=== PATIENT | female | born 1990 | race Caucasian/White ===

== ENCOUNTER 2017-08-07 13:05 | Observation (INO) | payer OTHER, MEDICAID, SELFPAY ==
[2017-08-07] MEDS: LACTATED RINGERS 1,000 ML 1000 ML IV (14:25)
[2017-08-07 14:36] LABS: Add Manual Diff / Slide Review NO; Basophils Percent Auto 0.6 % (0-2); Eosinophils Percent Auto 0.3 % (2-4); Hematocrit 37.8 % (36-46); Lymphocytes Percent Auto 13.5 % (25-40); Mean Corpuscular HGB Conc 34.6 % (30-36); Mean Corpuscular Hemoglobin 30.2 PG (26-34); Mean Corpuscular Volume 87.5 fL (80-100); Monocytes Percent Auto 5.6 % (3-14); Neutrophils Absolute Auto 8500 /uL (3000-5900); Platelet Count 250 X10^3/uL (150-400); Red Blood Cell Count 4.31 X10^6/uL (4.0-5.2); Red Cell Distribution Width 13.8 % (11.6-14.8); White Blood Cell Count 10.6 X10^3/uL (4.5-11.0)
[2017-08-07] MEDS: cephALEXin 250 MG CAPSULE 500 MG PO (16:30)
[2017-08-07 19:40] LABS: Appearance Urine UA CLEAR; Bilirubin Urine UA NEGATIVE (NEGATIVE); Color Urine UA YELLOW; Glucose Urine UA NEGATIVE (NEGATIVE); Ketones Urine UA NEGATIVE (NEGATIVE); Leukocyte Esterase Urine UA 1+ (NEGATIVE); Nitrite Urine UA NEGATIVE (NEGATIVE); Occult Blood Urine UA NEGATIVE (NEGATIVE); Protein Urine UA NEGATIVE (NEGATIVE); Urobilinogen Urine UA 0.2 E.U./dL (0.2); pH Urine UA 6.5 (4.5-8.0)
[2017-08-07 19:51] LABS: Culture Indicated Urine Cult Not Indicated; RBC Urine 0-1/HPF (0-5/HPF); WBC Urine 0-1/HPF (0-5/HPF)
== END 2017-08-07 16:30 | disposition home or self-care (01) ==
PROVIDERS: Specialist; Admitting Provider Family Medicine; PCP Family Medicine; Visit Provider Family Medicine
DX: O60.02 Preterm labor without delivery, second trimester (principal); Z3A.20 20 weeks gestation of pregnancy
CPT/HCPCS: 59025; 59050; 81001; 85025; 96360; G0378; G0379

== ENCOUNTER 2017-10-03 18:02 | Observation (INO) | payer OTHER, MEDICAID, SELFPAY ==
[2017-10-03 18:50] LABS: Appearance Urine UA CLEAR; Bilirubin Urine UA NEGATIVE (NEGATIVE); Color Urine UA YELLOW; Glucose Urine UA NEGATIVE (Normal); Ketones Urine UA NEGATIVE (NEGATIVE); Leukocyte Esterase Urine UA TRACE (NEGATIVE); Nitrite Urine UA Negative (Negative); Occult Blood Urine UA NEGATIVE (Negative); Protein Urine UA NEGATIVE (Negative); Urobilinogen Urine UA 0.2 E.U./dL (0.2)
[2017-10-03] MEDS: NIFEdipine 10 MG CAPSULE PO ×4 (19:11→20:24)
[2017-10-03 19:20] LABS: Bacteria Urine Few (2-10); RBC Urine 0-1/HPF (0-5/HPF); Squamous Epithelial Cell Urine 1-5 /HPF; WBC Urine 5-10/HPF (0-5/HPF)
[2017-10-03 19:21] LABS: Culture Indicated Urine Specimen Cultured
[2017-10-03] MEDS: LACTATED RINGERS 1,000 ML 1000 ML IV (19:21)
== END 2017-10-03 20:45 | disposition home or self-care (01) ==
PROVIDERS: Admitting Provider Family Medicine; PCP Family Medicine; Visit Provider Family Medicine
DX: O60.03 Preterm labor without delivery, third trimester (principal); Z3A.28 28 weeks gestation of pregnancy
CPT/HCPCS: 59025; 59050; 81001; 87077; 87086; 87186; 96360; G0378; G0379

== ENCOUNTER 2017-10-06 13:16 | Observation (INO) | payer OTHER, MEDICAID, SELFPAY | END 2017-10-06 14:11 | disposition home or self-care (01) | PROVIDERS: Admitting Provider Family Medicine; PCP Family Medicine; Visit Provider Family Medicine | DX: Z03.71 Encounter for suspected problem with amniotic cavity and membrane ruled out (principal); Z3A.29 29 weeks gestation of pregnancy | CPT/HCPCS: 59025; 84112; G0378; G0379 ==

== ENCOUNTER → 2017-10-17 15:18 | Outpatient (CLI) | payer OTHER, MEDICAID, SELFPAY ==
--- NOTE | 2017-10-17 15:21 | DI.US.S_ITS ---
PROCEDURE: US OB LIMITED INDICATIONS: SIZE OUTSIDE/PRIOR DATING DATA: Last menstrual period (LMP): 03/09/2017. LMP-based estimated date of delivery (DILLAN): 12/14/2017. First dating scan (date and location): 05/12/2017. Estimated date of delivery (DILLAN) from first dating scan: 12/20/2017. TECHNIQUE: Real-time scanning was performed of the fetus, with image documentation. Endovaginal scanning: Not performed COMPARISON: [facility], OB >= 14 WEEKS FETUS, 08/06/2017, 8:57. FINDINGS: A single living intrauterine gestation is present. Presentation: Vertex Placenta: Placental position is anterior, without previa. Amniotic fluid index: 16.2 cm, normal range is 5-24 cm. heart rate: 143 beats per minute. Maternal cervical canal: 4.0 cm long. Normal lower limit is 2.5 cm. Estimated gestational age from initial scan: 30 weeks and 6 days. Estimated gestational age from today's scan: 31 weeks and 6 days Biparietal diameter: 7.9 CM (31 weeks and 5 days) Head circumference: 29.3 CM (32 weeks and 2 days) Abdominal circumference: 28.6 CM (32 weeks and 5 days) Femur length: 5.9 CM (30 weeks and 6 days) Estimated weight: 1879 gm (76%) IMPRESSION: Single intrauterine gestation with estimated gestational age of 30 weeks and 6 days. Dictated by: Rajiv Marie M.D. on 10/17/2017 at 16:28 Approved by: Rajiv Marie M.D. on 10/17/2017 at 16:32
== END ==
PROVIDERS: PCP Family Medicine; Visit Provider Family Medicine
DX: Z36.89 Encounter for other specified antenatal screening (principal); Z3A.30 30 weeks gestation of pregnancy
CPT/HCPCS: 76815

== ENCOUNTER → 2017-11-25 18:12 | Outpatient (REF) | payer OTHER, MEDICAID, SELFPAY | LOC: LAB 18:12 | PROVIDERS: PCP Family Medicine; Visit Provider Family Medicine | DX: Z34.90 Encounter for supervision of normal pregnancy, unspecified, unspecified trimester (principal) | CPT/HCPCS: 87081 ==

== ENCOUNTER → 2017-12-09 13:06 | Outpatient (CLI) | payer OTHER, MEDICAID, SELFPAY ==
--- NOTE | 2017-12-09 | DI.US.S_ITS ---
PROCEDURE: US OB LIMITED INDICATIONS: SIZE LESS THAN DATES OUTSIDE/PRIOR DATING DATA: Last menstrual period (LMP): 03/09/2017. LMP-based estimated date of delivery (DILLAN): 12/14/2017. First dating scan (date and location): 05/12/2017. Estimated date of delivery (DILLAN) from first dating scan: 12/20/2017 TECHNIQUE: Real-time scanning was performed of the fetus, with image documentation and biometric measurements. Endovaginal scanning: No COMPARISON: [facility], US OB LIMITED, 10/17/2017, 15:45. FINDINGS: General: A single living intrauterine gestation is present. Presentation: Vertex. Placenta: Placental position is anterior, without previa. Amniotic fluid index: 9.6 cm, normal range is 5-24 cm. heart rate: 153 beats per minute. Maternal cervical canal: Not well-seen. biometrics: Biparietal diameter: 38 weeks 1 day Head circumference: 38 weeks 3 days Abdominal circumference: 39 weeks Femur length: 38 weeks Estimated gestational age from initial scan: 38 weeks 3 days Composite gestational age from present scan: 38 weeks 3 days Estimated weight and percentile: 3534 g; 69 percentile Measurement variability for biometric dating: +/- 7 days from 14 weeks to 15 weeks 6 days gestation, +/- 10 days from 16 weeks to 21 weeks 6 days gestation, +/- 2 weeks from 22 weeks to 27 weeks 6 days gestation, +/- 3 weeks for 28 weeks gestation or later. weight reference: 4500 g or EFW >90/95% is considered macrosomia or large for gestational age. EFW <10% is small for gestational age. EFW 5% or less is considered intra-uterine growth restriction. Other: Not applicable. IMPRESSION: Single living IUP redemonstrated and interval growth is normal. Dictated by: Jeet Mason [facility] Interpreted: Mohan Loco MD on 12/09/2017 at 16:32 Approved by: Mohan Loco M.D. on 12/09/2017 at 17:33
== END ==
PROVIDERS: PCP Family Medicine; Visit Provider Family Medicine
DX: O36.5930 Maternal care for other known or suspected poor fetal growth, third trimester, not applicable or unspecified (principal); Z3A.38 38 weeks gestation of pregnancy
CPT/HCPCS: 76815

== ENCOUNTER 2017-12-13 20:50 | Observation (INO) | payer OTHER, MEDICAID, SELFPAY | END 2017-12-13 23:07 | disposition home or self-care (01) | PROVIDERS: Admitting Provider Family Medicine; PCP Family Medicine; Visit Provider Family Medicine | DX: Z34.83 Encounter for supervision of other normal pregnancy, third trimester (principal); Z3A.39 39 weeks gestation of pregnancy | CPT/HCPCS: 59025; 59050; G0378; G0379 ==

== ENCOUNTER 2017-12-17 18:22 | Inpatient (IN) | payer OTHER, MEDICAID, SELFPAY ==
[2017-12-17] MEDS: LACTATED RINGERS 1,000 ML 100 ML IV (19:11)
[2017-12-17 19:22] LABS: Add Manual Diff / Slide Review NO; Basophils Percent Auto 0.6 % (0-2); Eosinophils Percent Auto 0.5 % (2-4); Hematocrit 36.9 % (36-46); Hemoglobin 12.1 g/dL (12.0-16.0); Lymphocytes Percent Auto 21.5 % (25-40); Mean Corpuscular HGB Conc 32.8 % (30-36); Mean Corpuscular Hemoglobin 27.3 PG (26-34); Mean Corpuscular Volume 83.2 fL (80-100); Monocytes Percent Auto 8.5 % (3-14); Neutrophils Absolute Auto 8500 /uL (3000-5900); Neutrophils Percent Auto 68.9 % (50-75); Platelet Count 249 X10^3/uL (150-400); Red Blood Cell Count 4.43 X10^6/uL (4.0-5.2); Red Cell Distribution Width 15.5 % (11.6-14.8); White Blood Cell Count 12.3 X10^3/uL (4.5-11.0)
[2017-12-17 19:45] VITALS: BP 132/83
[2017-12-18] MEDS: ACETAMINOPHEN 325 MG TABLET 650 MG PO (06:29)
--- NOTE | 2017-12-18 08:11 | PM.OBPRVD ---
Delivery date: 12/18/17 Intrapartal events: None Delivery monitor: external FHT and external uterine Route of delivery: Laceration description: Vaginal - 1st Degree Delivery repair: chromic Estimated blood loss (mL): 200 Anesthesia type: Epidural Narrative: Identifying data: This pleasant 27-year-old at 3947 weeks estimated gestational age has had irregular and regular uterine contractions for several weeks. She has not made cervical change. She was driving to the hospital for Cytotec cervical ripening and induction when she had spontaneous rupture membranes at 6:10 p.m. on the day prior to delivery of clear fluid. It is she was 3 cm dilated on presentation was felt to be an active labor at 7:00 p.m.. She had unremarkable other than premature onset of uterine contractions. She had some early 2nd trimester bleeding as well for etiology are known. No evidence of placenta previa or abruption. She had abnormal 1 hr glucose tolerance test but normal 3 hr glucose tolerance test. Stage I: Lasted 11 hr and 30 min Patient had spontaneous rupture membranes at 6:10 p.m. on 12/17/2017 13 hr and 14 min prior to delivery. Copious amounts of clear fluid. A continue to be clear throughout this time. Patient was given epidural at 7:00 p.m.. It was effective with some left-sided pain. Patient labor through the night without augmentation at 5:00 a.m. was found to be 7 cm dilated. She had external heart tones monitor which showed category 1 tracing with a baseline in the 130s with moderate variability and accelerations and no decelerations. She had external tocometer showing contractions every 5-8 minutes. Stage II lasted 54 min. The patient was noted to be complete at 6:30 a.m.. She was having some nausea and vomiting. She began pushing at 7: 2:00 p.m. and had good personal and effectively pushed and baby was in direct OA presentation. The head was delivered without difficulty and good control and then felt for cord which was not present and anterior and posterior shoulders were delivered without difficulty. Baby was vigorous at delivery was placed on mom's chest. External heart monitor throughout this stage was reassuring with category 1 tracing. His Stage III lasted 3 min Resulted in the normal spontaneous vaginal delivery of an intact moderately calcified placenta with a central cord insertion. Three-vessel cord. Ten milliunits of Pitocin was given through the IV. Total estimated blood loss was 200 cc. There was a left 1st group arm nail laceration which was repaired with 3 0 chromic. There remainder of the perineum, periurethral, vaginal, cervical area showed no lacerations. Operation were 9 at 1 min and 9 at 5 min. weight is pending. At the time this dictation both mom and baby are in stable condition GBS negative mom, status post Tdap
[2017-12-18] MEDS: IBUPROFEN 600 MG TABLET PO ×3 (08:30→21:16)
[2017-12-18] MEDS: LANOLIN OINT 7 GM 1 APPLIC TOP (10:32)
[2017-12-18] MEDS: DERMOPLAST SPRAY 20% 60 ML 1 SPRAY TOP (10:32)
[2017-12-19 01:04] VITALS: BP 114/75; PULSE 76; RESP 18; TEMP 36.4
[2017-12-19 06:22] LABS: Hemoglobin 10.9 g/dL (12.0-16.0)
--- NOTE | 2017-12-19 08:03 | PM.OBHP.1 ---
OB HPI History of Present Condition Chief complaint: eval of labor Narrative: Madisyn Almanzar is a 27 year old female presents to Labor and delivery for scheduled induction due to prodromal labor but was found to be in active labor with spontaneous rupture membranes on her way to hospital. Clear fluid. Unremarkable . care was begun early on. Patient had greater than 14 visits. Total waking was 40 lb. Blood pressure was 108-122 over 66-80. Patient received her Tdap patient when on Zantac for reflux. Patient had 2nd trimester vaginal bleeding but no placental abnormality was noted. 1 hr glucose tolerance test was 147 but 3 hr glucose tolerance test and hemoglobin A1c was entirely normal. Patient O-positive, rubella immune HIV, hepatitis-C, hepatitis-B, syphilis, GC, chlamydia, Pap smear all within normal limits. Group B beta strep was negative. Hemoglobin 12.3 initially 3 hr glucose tolerance test was 166, 128, 36 sequential screen and AFP were negative Past OB history: One. 12/05/2007 at 37 weeks gestation after 6 hr labor normal spontaneous vaginal delivery of a 6 lb 7 oz female name Ned feliciano Two. 11/03/2012 at 40 weeks gestation after 3 hr labor normal spontaneous vaginal delivery of a viable male infant weighing 7 lb 7 oz at [facility] with epidural and no complications 3. 04/26/2015 at 39 weeks gestation normal spontaneous vaginal delivery of a viable female weighing 7 lb 3 oz named Y[facility] at [facility] with epidural. No complications PSH: Unremarkable Past medical history: Unremarkable Evaluation Evaluation Laboratory results: Laboratory Tests 12/17/17 12/17/17 12/19/17 19:19 19:19 06:13 WBC 12.3 H RBC 4.43 Hgb 12.1 10.9 L Hct 36.9 33.0 L MCV 83.2 MCH 27.3 MCHC 32.8 RDW 15.5 H Plt Count 249 Neut % (Auto) 68.9 Lymph % (Auto) 21.5 L [place] % (Auto) 8.5 Eos % (Auto) 0.5 L Baso % (Auto) 0.6 Neut # (Auto) 8500 H Blood Type O Positive Antibody Screen Negative PFSH Social History Smoking Status: Never smoker Meds Home Medications Medication Instructions Recorded Confirmed Type No Known Home Medications 12/17/17 12/17/17 History Allergies Allergy/AdvReac Type Severity Reaction Status Date / Time adhesive [ADHESIVE] Allergy Mild TAPE Verified 10/03/17 20:53 Review of Systems Review of Systems No headaches, no swelling no abnormal discharge Baby has been active No abdominal pain other than uterine contractions All systems reviewed & are unremarkable except as noted in HPI and below Exam Narrative Exam Narrative: HEENT unremarkable Afebrile vital signs are stable Neck is supple without masses or thyromegaly Chest: Clear to auscultation without wheezes rhonchi or crackles Cor: Regular rate and rhythm without murmur Abdomen: Positive bowel sounds, soft, nontender, nondistended, gravid, estimated weight 7 lb 8 oz Extremities no significant edema. DTRs are 2+ bilaterally. Neurologic exam is nonfocal Skin no rashes Cervical exam she has complete +1 station Uterine contractions every 4-6 minutes without Pitocin Spontaneous rupture membranes, clear 13 hr prior heart tracing with external heart monitor shows category 1 tracing with baseline 130s and accelerations with variable decelerations with pushing Objective Labs Result Diagrams: 12/19/17 06:13 Labs: Laboratory Results - last 24 hr 12/19/17 06:13 Hgb 10.9 L Hct 33.0 L Assessment and Plan Plan: Plan: 27-year-old at 39 and 4 7 weeks estimated gestational age in active labor Comfortable with epidural GBS negative Arch positive Complete. We will begin pushing Category 1 tracing Pitocin
--- NOTE | 2017-12-19 08:26 | PM.OBDS.1 ---
Discharge Providers Date of admission: 12/17/17 18:22 Primary care physician: Tosha Hummel MD Consults: 12/18/17 09:00 Consult to Cras Routine Comment: 12/18/17 09:17 Consult to Cras Routine Comment: Discharge provider: Tosha Hummel MD Summary Date Patient Seen: 12/19/17 Time Patient Seen: 08:29 Peripartum Data Infant Delivery Method: Natural Vaginal Laceration description: Perineal - 1st Degree complications: none Status at Discharge Cognitive/behavioral status at discharge: normal Functional status at discharge: independent ambulation Overall status at discharge: patient is progressing back to baseline Time Spent with Patient Total time spent providing and/or coordinating discharge services: 20 minutes Less than 30 minutes Specific discharge activities: Discharged to home and follow up with Dr. Hummel in 2 weeks Routine pelvic rest and no heavy lifting Routine infection precautions discussed Objective Labs Result Diagrams: 12/19/17 06:13 Labs: Laboratory Results - last 24 hr 12/19/17 06:13 Hgb 10.9 L Hct 33.0 L Discharge Plan Discharge Med Rec/Prescriptions Prescriptions: No Action No Known Home Medications RF: 0 Discharge Orders: Discharge (Order); Ordered 12/19/17 Ordered By: Tosha Hummel Provider Discharge Instructions Activity: pelvic rest no heavy lifting Discharge Data Primary Care Provider: Tosha Hummel Attending Provider: Tosha Hummel Admit Date/Time: 12/17/17 18:22
--- NOTE | 2017-12-19 08:30 | P.DS_ITS ---
Discharge Providers Date of admission: 12/17/17 18:22 Primary care physician: Tosha Hummel MD Consults: 12/18/17 09:00 Consult to Heel Seat Fitter Machine Routine Comment: 12/18/17 09:17 Consult to Heel Seat Fitter Machine Routine Comment: Discharge provider: Tosha Hummel MD Summary Date Patient Seen: 12/19/17 Time Patient Seen: 08:29 Peripartum Data Infant Delivery Method: Natural Vaginal Laceration description: Perineal - 1st Degree complications: none Status at Discharge Cognitive/behavioral status at discharge: normal Functional status at discharge: independent ambulation Overall status at discharge: patient is progressing back to baseline Time Spent with Patient Total time spent providing and/or coordinating discharge services: 20 minutes Less than 30 minutes Specific discharge activities: Discharged to home and follow up with Dr. Hummel in 2 weeks Routine pelvic rest and no heavy lifting Routine infection precautions discussed Objective Labs Result Diagrams: 12/19/17 06:13 Labs: Laboratory Results - last 24 hr 12/19/17 06:13 Hgb 10.9 L Hct 33.0 L Discharge Plan Discharge Med Rec/Prescriptions Prescriptions: No Action No Known Home Medications RF: 0 Discharge Orders: Discharge (Order); Ordered 12/19/17 Ordered By: Tosha Hummel Provider Discharge Instructions Activity: pelvic rest no heavy lifting Discharge Data Primary Care Provider: Tosha Hummel Attending Provider: Tohsa Hummel Admit Date/Time: 12/17/17 18:22
[2017-12-19] MEDS: DOCUSATE 250 MG CAPSULE PO (08:54)
[2017-12-19] MEDS: IBUPROFEN 600 MG TABLET PO (08:55)
== END 2017-12-19 14:10 | disposition home or self-care (01) | DRG 560 ==
PROVIDERS: Admitting Provider Family Medicine; PCP Family Medicine; Visit Provider Family Medicine
DX: O70.0 First degree perineal laceration during delivery (principal); Z3A.39 39 weeks gestation of pregnancy; Z37.0 Single live birth
CPT/HCPCS: 01967; 36415; 59050; 85014; 85018; 85025; 86850; 86900; 86901; G0379; J3010

== ENCOUNTER → 2018-01-02 11:51 | Outpatient (CLI) | payer OTHER, MEDICAID, SELFPAY | PROVIDERS: PCP Family Medicine; Visit Provider Family Medicine | DX: M54.2 Cervicalgia (principal); Z53.20 Procedure and treatment not carried out because of patient's decision for unspecified reasons ==

== ENCOUNTER → 2018-01-05 11:13 | Outpatient (CLI) | payer OTHER, MEDICAID, SELFPAY ==
--- NOTE | 2018-01-05 11:15 | DI.RAD.S_ITS ---
PROCEDURE: XR THORACIC SPINE 3V INDICATIONS: PAIN TECHNIQUE: 2 views of the thoracic spine were acquired. COMPARISON: None. FINDINGS: Bones: No fractures or dislocations. No suspicious bony lesions. 12 pairs of ribs are noted, and appear intact where visualized. Soft tissues: No paravertebral stripe thickening. IMPRESSION: Source of pain is not seen. Dictated by: Mohan Loco M.D. on 01/05/2018 at 12:13 Approved by: Mohan Loco M.D. on 01/05/2018 at 12:13
--- NOTE | 2018-01-05 11:15 | DI.RAD.S_ITS ---
PROCEDURE: XR CERVICAL SPINE 2V OR 3V INDICATIONS: PAIN TECHNIQUE: 3 view(s) of the cervical spine were acquired. COMPARISON: None. FINDINGS: Bones: No fractures or dislocations to the T1 level. The lateral masses of C1 appear intact on the odontoid view. No suspicious bony lesions. Soft tissues: No prevertebral soft tissue swelling. IMPRESSION: No trauma found. Source of pain is not seen. Dictated by: Mohan Loco M.D. on 01/05/2018 at 12:12 Approved by: Mohan Loco M.D. on 01/05/2018 at 12:13
== END ==
PROVIDERS: PCP Family Medicine; Visit Provider Family Medicine
DX: M54.2 Cervicalgia (principal); M54.6 Pain in thoracic spine
CPT/HCPCS: 72040; 72072

== ENCOUNTER → 2019-11-24 10:36 | Outpatient (CLI) | payer BC, SELFPAY ==
--- NOTE | 2019-11-24 | DI.US.S_ITS ---
PROCEDURE: US RENAL COMPLETE INDICATIONS: Frequency of micturition TECHNIQUE: Real-time scanning was performed of the kidneys and bladder, with image documentation. COMPARISON: [facility], , RENAL COMPLETE, 02/22/2011, 12:32. FINDINGS: Kidneys: Kidneys are normal in size. Right kidney measures 10.2 cm long; left kidney measures 11.3 cm long. Right renal cortical thickness is 1.4 cm; left renal cortical thickness is 1.9 cm. Renal cortical echotexture is normal. No hydronephrosis or nephrolithiasis. No suspicious solid mass lesions. Bladder: Pre-void bladder volume is 107 mL. Post-void residual is 4.0 mL. Pre-void images demonstrate no intraluminal masses or stones. On pre-void images, bilateral ureteral jets are noted with color Doppler interrogation. (Of note, ureteral jets may not be detectable in up to 25% of cases due to insufficient differences in specific gravity between ureteral and bladder urine). Miscellaneous: No free pelvic fluid. IMPRESSION: No source of urinary frequency is found. Normal bladder function. Dictated by: Mohan Loco M.D. on 11/24/2019 at 11:17 Approved by: Mohan Loco M.D. on 11/24/2019 at 11:19
== END ==
PROVIDERS: PCP Family Medicine; Referring Provider Family Medicine; Visit Provider Family Medicine
DX: R35.0 Frequency of micturition (principal)
CPT/HCPCS: 76770

== ENCOUNTER → 2019-12-28 15:46 | Outpatient (CLI) | payer BC, SELFPAY ==
--- NOTE | 2019-12-28 15:51 | DI.US.S_ITS ---
PROCEDURE: US OB <= 14 WEEKS FETUS INDICATIONS: Followup OUTSIDE/PRIOR DATING DATA: Last menstrual period (LMP): 11/07/2019 . LMP-based estimated date of delivery (DILLAN): 08/13/2020 . First dating scan (date and location): 12/28/2019 . Estimated date of delivery (DILLAN) from first dating scan: 08/13/2020 . TECHNIQUE: Real-time scanning was performed of the fetus and maternal pelvic organs, with image documentation. Endovaginal scanning was also performed to better visualize the fetus and maternal ovaries. COMPARISON: None. FINDINGS: Embryo: Single live intrauterine with crown-rump length measuring 1.16 cm corresponding to 7 weeks 2 days. heart tones are present at 155 beats per minute. Measurement variability in dating: +/- 4 weeks by LMP, +/- 7 days by mean sac diameter (use before 6 weeks gestation if crown-rump length not able to be measured), +/- 5 days by crown-rump length (up to 8 weeks 6 days gestation), +/- 7 days by crown-rump length (up to 13 weeks 6 days gestation). Maternal organs: Ovaries demonstrate a right corpus luteal cyst. . Limited images through the kidneys demonstrate no hydronephrosis. IMPRESSION: 1. Single live intrauterine with ultrasound gestational age of 7 weeks 2 days corresponding to ultrasound DILLAN of 08/13/2020. 2. Recommend followup imaging at 20-22 weeks for dates and anatomy. Dictated by: Gilda Tavarez M.D. on 12/29/2019 at 10:42 Approved by: Gilda Tavarez M.D. on 12/29/2019 at 10:45
== END ==
PROVIDERS: PCP Family Medicine; Referring Provider Family Medicine; Visit Provider Family Medicine
DX: Z36.2 Encounter for other antenatal screening follow-up (principal); Z3A.01 Less than 8 weeks gestation of pregnancy
CPT/HCPCS: 76801

== ENCOUNTER 2020-03-14 15:48 | Observation (INO) | payer BC, OTHER, MEDICAID, SELFPAY ==
[2020-03-14 15:57] VITALS: BP 125/91; PULSE 105; RESP 16; TEMP 36.6; O2SAT 99
--- NOTE | 2020-03-14 16:44 | ED.PREGNANCY ---
HPI - General Chief complaint: OB/Uterine Contractions Stated complaint: 18 WKS CONTRACTIONS Time Seen by Provider: 03/14/20 16:28 Source: patient Mode of arrival: Ambulatory History of Present Illness HPI Narrative: 29-year-old at 18 weeks and 3 days presents with contractions since 04/29 this afternoon. They are now approximately every 2 minutes and becoming increasingly uncomfortable. She reports no loss of fluid, no bleeding does note that the baby is moving. She has had complicated pregnancies previously and her most recent , #4, she required nifedipine from 20 weeks until her 39 week delivery. Patient : Yes Related Data Home Medications Medication Instructions Recorded Confirmed No Known Home Medications 12/17/17 12/17/17 Allergies Allergy/AdvReac Type Severity Reaction Status Date / Time adhesive [ADHESIVE] Allergy Mild TAPE Verified 03/14/20 16:00 Review of Systems Review of Systems Narrative: Pertinent positive and negative findings as per HPI Remainder of review of systems is otherwise unremarkable for Constitutional: Fevers, chills, weakness ENT: No sore throat, neck pain, ear pain CV: Chest pain, palpitations, dyspnea on exertion Respiratory: Cough, wheeze, dyspnea GI: Nausea, vomiting, PMFSH - Past Medical History Medical history: Reports no medical history Patient : Yes Exam Narrative Exam Narrative: General: Alert appropriate in no acute distress Respiratory: Able to speak in full sentences, no obvious respiratory distress Skin: No obvious rashes, warm and dry Abdomen: Gravid, obvious contractions Q 2 minutes Cervical exam: Almost completely effaced well-developed lower uterine segment with very posterior cervical os, no bleeding, no loss of fluid Bedside ultrasound: Vertex, viable intrauterine with a heart rate of 130. Normal appearing amniotic fluid volumes. Anterior low lying placenta Initial Vital Signs Initial Vital Signs: Vital Signs Temperature 97.8 F 03/14/20 15:57 Pulse Rate 105 H 03/14/20 15:57 Respiratory Rate 16 03/14/20 15:57 Blood Pressure 125/91 H 03/14/20 15:57 Pulse Oximetry 99 03/14/20 15:57 Course Orders Ordered: Discontinued Medications Nifedipine (Nifedipine 10 Mg Capsule) 10 mg PO NOW ONE Stop: 03/14/20 16:47 Terbutaline Sulfate (Terbutaline 1 Mg/Ml Vial) 0.25 mg SUBCUT NOW ONE Stop: 03/14/20 16:47 Vital Signs Vital signs: Vital Signs - 8 hr 03/14/20 15:57 Temperature 97.8 F Pulse Rate 105 H Respiratory Rate 16 Blood Pressure 125/91 H Pulse Oximetry 99 MDM - OB/Uterine Contractions MDM Narrative Medical decision making narrative: 29-year-old at 18 weeks, nonviable with active contractions and cervical effacement. Reviewed with Dr. Hummel, her primary care OB provider. Will give her 0.25 mg of subcu terbutaline and 10 mg of oral nifedipine to see if we can slow contractions and Dr. Hummel will talk with additional consultants to decide what options are for this 18 week 3 day nonviable . Meds are not immediately available in the emergency department. Call to labor and delivery. Patient will be transferred to room 6 labor and delivery, nifedipine and terbutaline will be administered there and Dr. Hummel will meet the patient there. Discharge Plan Departure Patient Disposition: Admitted as Observation Clinical Impression: Premature labor Qualifiers: labor trimester: second trimester labor delivery status: without delivery Qualified Code(s): O60.02 - labor without delivery, second trimester Admit Date/Time: 03/14/20 16:55 Admit Provider: Tosha Hummel
[2020-03-14] MEDS: NIFEdipine 10 MG CAPSULE PO ×4 (17:05→18:37)
[2020-03-14] MEDS: TERBUTALINE 1 MG/ML VIAL 0.25 MG SUBCUT (17:05)
--- NOTE | 2020-03-14 17:25 | DI.US.S_ITS ---
PROCEDURE: US OB >= 14 WEEKS FETUS INDICATIONS: suspected labor OUTSIDE/PRIOR DATING DATA: Last menstrual period (LMP): 11/07/2019 . LMP-based estimated date of delivery (DILLAN): 08/13/2020 . First dating scan (date and location): 12/28/2019 . Estimated date of delivery (DILLAN) from first dating scan: 08/13/2020 . TECHNIQUE: Real-time scanning was performed of the fetus, with image documentation and biometric measurements. Endovaginal scanning: Performed COMPARISON: None. FINDINGS: General: A single living intrauterine gestation is present. Presentation: Vertex. Placenta: Placental position is anterior , without previa. Amniotic fluid index: 12 cm, normal range is 5-24 cm. No change in JANUARY upon Valsalva heart rate: 153 beats per minute. Maternal cervical canal: 4.76 cm long. Normal lower limit is 2.5 cm. IMPRESSION: Single live intrauterine gestation. Normal JANUARY with no change in JANUARY upon Valsalva. Closed cervix with a normal length. Dictated by: Norman Muhammad M.D. on 03/14/2020 at 17:26 Approved by: Norman Muhammad M.D. on 03/14/2020 at 17:30
[2020-03-14] MEDS: LACTATED RINGERS 1,000 ML 1000 ML IV (17:40)
--- NOTE | 2020-03-14 17:43 | P.CONS_ITS ---
History of Present Illness Consult details Date Patient Seen: 03/14/20 Time Patient Seen: 18:00 Chief complaint: 18 WKS CONTRACTIONS Reason for consult: 18 weeks gestation with contractions Requesting provider: Tosha Hummel Narrative: This patient is a 29-year-old 004 at 18+3 dated by 7 week ultrasound concordant with LMP, presenting to Labor and delivery with Q 1-2 painful contractions since earlier this afternoon. She was directed to the emergency room and from there was sent to Labor and delivery after initial ultrasound was reassuring with heart rate in the 140s, normal fluid, no gross abnormalities. The patient received 10 mg of rapid acting nifedipine and 0.25 mg of IM terbutaline, with mild symptom relief. She reports significant symptom relief with her 2nd dose of nifedipine. The patient denies vaginal bleeding, loss of fluid, fevers, chills, dysuria, flank pain, shortness of breath, headaches, or any other associated symptoms. The patient has had a previously uncomplicated , with a normal quad screen. She has 4 prior term vaginal deliveries, though contractions with the last from 20 weeks until delivery at 39 weeks. She denies any history of abnormal Pap smears or cervical procedures, STDs or pelvic infections, or other curing finisher surgery. She den ies any contributory medical, surgical, social, or family history. Meds Home Medications and Allergies Home Medications Medication Instructions Recorded Confirmed Type No Known Home Medications 12/17/17 03/14/20 History Allergies Allergy/AdvReac Type Severity Reaction Status Date / Time adhesive [ADHESIVE] Allergy Mild TAPE Verified 03/14/20 16:00 Review of Systems Constitutional Constitutional: Reports system reviewed and no additional complaints, except as documented Cardiovascular Cardiovascular: Reports system reviewed and no additional complaints, except as documented Respiratory Respiratory: Reports system reviewed and no additional complaints, except as documented Gastrointestinal Gastrointestinal: Reports as per HPI Genitourinary Genitourinary: Reports as per HPI Neurologic Neurologic: Reports system reviewed and no additional complaints, except as documented Exam Vital Signs (past 8 hours): - 03/14/20 15:57 Temperature 97.8 F Pulse Rate 105 H Respiratory Rate 16 Blood Pressure 125/91 H Pulse Oximetry 99 Oxygen Delivery Method Room Air Narrative Exam Narrative: heart rate 140s, contractions initially Q 1-2 on toco. Significantly improved symptomatic with tocolytics as above, 1 L IV fluid bolus. Of note patient has not had urge to void since arriving on Labor and delivery, despite 1 L fluid bolus. Const General: cooperative, healthy appearing and comfortable (Resting in bed, accompanied by partner) GI Palpation: soft and No tender (Appropriately gravid, no tenderness on palpation) Skin General: no rashes or lesions noted Extrem General: normal to inspection Objective Labs Result Diagrams: 03/14/20 17:50 Assessment & Plan Assessment & Plan narrative: This patient presents with symptomatic contractions. The patient has no signs or symptoms of abruption or intrauterine infection, and though she continues to contract irregularly, her symptoms and contraction frequency are much improved after IV hydration and tocolytics. Transvaginal ultrasound shows a 4 cm cervix with no other abnormalities on limited survey, and full anatomic survey was deferred to outpatient. At this time, urinalysis is pending the patient's inability to void secondary to dehydration. CBC showed a mild elevated white count but no other abnormalities, and patient has no clinical signs of infection. This time, the patient does not appear to be imminently delivering, and she has a history of contractions starting at 20 weeks in her prior with delivery at term. We discussed that especially given her cervical length, transfer for higher level of care is not warranted given her persistent contractions and her gestational age. Pending results of the UA, discharge with tocolysis for symptom relief seems appropriate, as the patient lives in [facility]. Precautions for return were discussed at length, and the patient will follow-up with her primary provider. - UA pending -above discussed with Dr. Hummel, agree with plan for 30 of X on nifedipine b.i.d. with 10 mg immediate release for breakthrough contractions symptoms. -discussed with patient return for vaginal bleeding, loss of fluid, worsening symptoms despite nifedipine, fevers, chills, abdominal tenderness.
--- NOTE | 2020-03-14 17:44 | PC.NURSE ---
pt taken to L&D after dr chiu spoke with dr anand.
[2020-03-14 18:15] LABS: Add Manual Diff / Slide Review NO; Basophils Absolute Auto 0 /uL (0-100); Basophils Percent Auto 0.3 % (0-2); Eosinophils Absolute Auto 0 /uL (0-450); Eosinophils Percent Auto 0.2 % (2-4); Hematocrit 39.2 % (36-46); Lymphocytes Absolute Auto 3300 /uL (1100-4500); Lymphocytes Percent Auto 19.6 % (25-40); Mean Corpuscular HGB Conc 33.1 % (30-36); Mean Corpuscular Hemoglobin 29.5 PG (26-34); Mean Corpuscular Volume 89.1 fL (80-100); Monocytes Absolute Auto 800 /uL (0-900); Monocytes Percent Auto 4.8 % (3-14); Neutrophils Absolute Auto 12500 /uL (1500-7000); Neutrophils Percent Auto 75.1 % (50-75); Platelet Count 241 X10^3/uL (150-400); Red Cell Distribution Width 13.8 % (11.6-14.8); White Blood Cell Count 16.6 X10^3/uL (4.5-11.0)
--- NOTE | 2020-03-14 18:24 | P.TNLD_ITS ---
Visit Information Visit Information Date of evaluation: 03/14/20 Primary OB Provider: Tosah Hummel Reason for Evaluation: Yes rule out labor Comments/Additional reasons for admission: This 29-year-old at 18 and 3 7th weeks estimated gestational age based on a EDC of 08/13/2020 based on LMP and a 7 week ultrasound presents to ER with complaints of painful contractions. Apparently patient was lying down napping and she started feeling cramping and then had sudden onset of significant uterine contractions every 2 minutes apart. These were happening for about 30 minutes and she called our clinic we instr ucted her to go to the emergency room. In the emergency room they were able to evaluate and see that she was ted. Bedside ultrasound was done and there was concern for cervical effacement and heart tones in the 140s. Patient was transferred to Labor and delivery where an IV was placed and IV fluids were given. Patient was given 1 dose of subcutaneous terbutaline and was given nifedipine 10 mg and she felt that her contractions had decreased in intensity but were still every 2 minutes. Patient has a history of pre term uterine contractions but has had all 4 of her children at term via normal spontaneous vaginal deliveries. This has been complicated by social conditions and the father of this baby is not her or the father of her 4 children. The patient has been in her usual state health. She has not had any falls. She has not had any fever, chills, rashes. She has had no URI symptoms. She has had no UTI symptoms. She has had no change in discharge. No bleeding. No leaking. No swelling. No headaches. No chest pain or shortness of breath. Sh e is feeling the baby move. She had sexual intercourse 2 nights prior. She did have some cramping on last Friday but nothing that persisted. Past medical history: Recurrent UTI Herpes labialis Migraine GERD Current medications are vitamins and Zofran Allergies no known drug allergies Past surgical history Unremarkable Family history: Dad with hypertension hyperlipidemia and alcohol use Mom is healthy Sister has asthma Social history: Patient currently from her and living with her boyfriend, father of the baby at his mom's house Four children she is taking care of them during the day and they are staying with the dad at night She is living in [place] currently and they were living in [facility] Past OB history Two thousand eight normal spontaneous vaginal delivery of viable female named Ned feliciano Two thousand thirteen normal spontaneous vaginal delivery of a viable male named Prince Two thousand sixteen normal spontaneous vaginal delivery of a viable female infant named his Heart Two thousand eighteen normal spontaneous vaginal delivery of a viable female infant named Tonia Healthier to behavior: Patient does not smoke, does not use illicit drugs, does not use marijuana, does not use alcohol Review of systems is negative other than HPI Vital Signs Vital Signs: Vital Signs - 8 hr 03/14/20 15:57 Temperature 97.8 F Pulse Rate 105 H Respiratory Rate 16 Blood Pressure 125/91 H Pulse Oximetry 99 PFSH Social History Smoking Status: Never smoker Exam Vital Signs (past 8 hours): - 03/14/20 15:57 Temperature 97.8 F Pulse Rate 105 H Respiratory Rate 16 Blood Pressure 125/91 H Pulse Oximetry 99 Oxygen Delivery Method Room Air Narrative Exam Narrative: Afebrile vital signs are stable. Heart rate 105-120 after terbutaline blood pressure 125/90 HEENT: Unremarkable Neck: Supple Chest: Clear to auscultation without wheezes rhonchi or crackles Cor: Regular rate and rhythm without a murmur Abdomen: Positive bowel sounds, soft, nontender, fundus at the umbilicus. Contractions are palpable, unclear position Extremities no edema DTRs are trace bilateral patella Cervical exam not done heart tones in the 140s Uterine contractions [id number] every 2 minutes Objective Labs Result Diagrams: 03/14/20 17:50 Labs: Laboratory Results - last 24 hr 03/14/20 17:50 WBC 16.6 H RBC 4.40 Hgb 13.0 Hct 39.2 MCV 89.1 MCH 29.5 MCHC 33.1 RDW 13.8 Plt Count 241 Neut % (Auto) 75.1 H Lymph % (Auto) 19.6 L [place] % (Auto) 4.8 Eos % (Auto) 0.2 L Baso % (Auto) 0.3 Neut # (Auto) 55689 H Lymph # (Auto) 3300 [place] # (Auto) 800 Eos # (Auto) 0 Baso # (Auto) 0 Evaluation Evaluation Baseline heart rate: 140 Contraction Frequency (minutes): 2 Uterine Contraction Intensity: Moderate Category of Tracing: Appropriate for gestational age Laboratory results: Laboratory Tests 03/14/20 17:50 WBC 16.6 H RBC 4.40 Hgb 13.0 Hct 39.2 MCV 89.1 MCH 29.5 MCHC 33.1 RDW 13.8 Plt Count 241 Neut % (Auto) 75.1 H Lymph % (Auto) 19.6 L [place] % (Auto) 4.8 Eos % (Auto) 0.2 L Baso % (Auto) 0.3 Neut # (Auto) 48040 H Lymph # (Auto) 3300 [place] # (Auto) 800 Eos # (Auto) 0 Baso # (Auto) 0 Diagnosis, Plan/Disposition Plan/Disposition Plan: Assessment: 29-year-old at 18 and 3 7th weeks estimated gestational age with good dating with premature onset of uterine contractions. No obvious abnormality of the fetus. No cervical change. No abnormality of the placenta. No obvious evidence of infection at this time. Contractions have improved with nifedipine and terbutaline. Plan: Will continue the nifedipine protocol and then plan to give nifedipine long- acting 30 mg twice daily Will then send home and follow-up in the clinic as long as uterine contractions continued to subside Appreciate consultation by Dr. banegas from [facility] Discussed with patient that this is currently an un viable fetus and that if contractions progressed to Labor that there would be no further intervention that we are capable of doing to change the situation. We discussed cerclage but this would be contraindicated because of the uterine contractions. And seemingly unnecessary because there has been no cervical change. Patient is 0 positive, normal serology for infection and negative quad screen, rubella immune OB Disposition: home
[2020-03-14 18:27] VITALS: BP 126/75
[2020-03-14] MEDS: NIFEdipine 30 MG TAB ER PO (19:07)
[2020-03-14 19:36] LABS: Appearance Urine UA SL CLOUDY; Bilirubin Urine UA NEGATIVE (NEGATIVE); Color Urine UA YELLOW; Glucose Urine UA NEGATIVE (Negative); Ketones Urine UA TRACE (NEGATIVE); Leukocyte Esterase Urine UA 2+ (NEGATIVE); Nitrite Urine UA NEGATIVE (Negative); Occult Blood Urine UA 3+ (Negative); Protein Urine UA TRACE (Negative); Specific Gravity Urine UA <=1.005 (1.000-1.035); Urobilinogen Urine UA 0.2 E.U./dL (0.2)
[2020-03-14 19:43] LABS: pH Urine UA 6.5 (4.5-8.0)
[2020-03-14 19:54] LABS: Bacteria Urine Moderate (10-30); Culture Indicated Urine Cult Not Indicated; RBC Urine 5-10/HPF (0-5/HPF); Squamous Epithelial Cell Urine 1-5 /HPF (0-5/HPF); Urine Comments CX ALREADY ORDERED; WBC Urine 30-100/HPF (0-5/HPF)
== END 2020-03-14 20:00 | disposition home or self-care (01) ==
LOC: ED 16:52 → LABOR 16:56
PROVIDERS: Obstetrics & Gynecology; Admitting Provider Family Medicine; Emergency Provider Emergency Medicine; PCP Family Medicine; Visit Provider Family Medicine
DX: O60.02 Preterm labor without delivery, second trimester (principal); Z3A.18 18 weeks gestation of pregnancy
CPT/HCPCS: 59050; 76811; 81003; 81015; 85025; 87077; 87086; 87186; 96360; 96372; 99282; G0378

== ENCOUNTER → 2020-03-29 13:55 | Outpatient (CLI) | payer BC, OTHER, MEDICAID, SELFPAY ==
--- NOTE | 2020-03-29 | DI.US.S_ITS ---
PROCEDURE: US OB >= 14 WEEKS FETUS INDICATIONS: ANATOMY SCAN OUTSIDE/PRIOR DATING DATA: Last menstrual period (LMP): 11/07/19 . LMP-based estimated date of delivery (DILLAN): 08/13/20 . First dating scan (date and location): 12/28/19 . Estimated date of delivery (DILLAN) from first dating scan: 08/13/20 . TECHNIQUE: Real-time scanning was performed of the fetus, with image documentation and biometric measurements. Endovaginal scanning: Not performed COMPARISON: [facility], OB <= 14 WEEKS FETUS, 12/28/2019, 16:13. [facility], OB >= 14 WEEKS FETUS, 03/14/2020, 17:58. FINDINGS: General: A single living intrauterine gestation is present. Presentation: Breech/transverse. Placenta: Placental position is anterior , without previa. Amniotic fluid index: 13.6 cm, normal range is 5-24 cm. heart rate: 150 beats per minute. Maternal cervical canal: 4.1 cm long. Normal lower limit is 2.5 cm. biometrics: Biparietal diameter: 4.9 cm, 20 weeks 6 days Head circumference: 18.9 cm, 21 weeks 1 day Abdominal circumference: 16.6 cm, 21 weeks 4 days Femur length: 3.6 cm, 21 weeks 4 days Estimated gestational age from initial scan: 20 weeks 3 days Composite gestational age from present scan: 21 weeks 2 days Estimated weight and percentile: 430 g, 94th percentile Measurement variability for biometric dating: +/- 7 days from 14 weeks to 15 weeks 6 days gestation, +/- 10 days from 16 weeks to 21 weeks 6 days gestation, +/- 2 weeks from 22 weeks to 27 weeks 6 days gestation, +/- 3 weeks for 28 weeks gestation or later. weight reference: 4500 g or EFW >90/95% is considered macrosomia or large for gestational age. EFW <10% is small for gestational age. EFW 5% or less is considered intra-uterine growth restriction. Anatomic survey: Neuro: Ventricles are non-dilated at less than 10 mm. Cisterna magna is normal at 3-11 mm. Cerebellum is normal in size and morphology. Nuchal skin fold: Normal at less than 6 mm between 14-21 weeks gestational age. Face: Nose and lips, facial profile are normal. Spine: No evidence for spina bifida. Heart: 4-chambered heart is present, with normal ventricular outflow tracts. Diaphragm: Diaphragm is intact. Stomach: Left-sided stomach is present. Kidneys: No hydronephrosis. Normal is less than 5 mm in 2nd trimester, less than 7 mm in 3rd trimester. Cord: 3-vessel cord has orthotopic insertion. Bladder: Normal in size. Extremities: All 4 extremities identified. IMPRESSION: Single living intrauterine fetus demonstrating expected interval growth Normal anatomic survey. Dictated by: John Dennis M.D. on 03/29/2020 at 17:36 Approved by: John Dennis M.D. on 03/29/2020 at 17:38
== END ==
PROVIDERS: PCP Family Medicine; Referring Provider Family Medicine; Visit Provider Family Medicine
DX: Z34.92 Encounter for supervision of normal pregnancy, unspecified, second trimester (principal); Z3A.20 20 weeks gestation of pregnancy
CPT/HCPCS: 76811

== ENCOUNTER → 2020-05-31 10:03 | Outpatient (CLI) | payer OTHER, MEDICAID, SELFPAY ==
--- NOTE | 2020-05-31 10:05 | DI.US.S_ITS ---
PROCEDURE: US OB LIMITED INDICATIONS: CONTRACTIONS OUTSIDE/PRIOR DATING DATA: Last menstrual period (LMP): 11/07/19. LMP-based estimated date of delivery (DILLAN): 08/13/20 . First dating scan (date and location): 12/28/19 . Estimated date of delivery (DILLAN) from first dating scan: 08/13/20 . TECHNIQUE: Real-time scanning was performed of the fetus, with image documentation. Endovaginal scanning: Not needed COMPARISON: [facility], OB LIMITED, 12/09/2017, 13:19. [facility], OB LIMITED, 10/17/2017, 15:45. FINDINGS: A single living intrauterine gestation is present. Presentation: Breech. Placenta: Placental position is anterior , without previa. Amniotic fluid index: 18.4 cm, normal range is 5-24 cm. heart rate: 143 beats per minute. Maternal cervical canal: 3.9 cm Estimated gestational age from initial scan: 29 weeks 3 days . Note: biometry was assessed, current estimated composite gestational age is 30 weeks 6 days and therefore there has been appropriate interval growth. The current estimated weight is 1668 g, at the 88th percentile. IMPRESSION: Breech presentation, at this time. Normal amniotic fluid volume. Current estimated weight is 1668 g, at the 88th percentile. Dictated by: Mohan Loco M.D. on 05/31/2020 at 16:18 Approved by: Mohan Loco M.D. on 05/31/2020 at 16:21
== END ==
PROVIDERS: PCP Family Medicine; Referring Provider Family Medicine; Visit Provider Family Medicine
DX: O47.03 False labor before 37 completed weeks of gestation, third trimester (principal); Z3A.30 30 weeks gestation of pregnancy
CPT/HCPCS: 76815

== ENCOUNTER → 2020-07-19 17:07 | Outpatient (ROUT) | payer OTHER, MEDICAID, SELFPAY | PROVIDERS: PCP Family Medicine; Visit Provider Family Medicine | DX: Z34.80 Encounter for supervision of other normal pregnancy, unspecified trimester (principal) | CPT/HCPCS: 87081; 87147 ==

== ENCOUNTER → 2020-07-20 10:28 | Outpatient (CLI) | payer OTHER, MEDICAID, SELFPAY ==
--- NOTE | 2020-07-20 | DI.US.S_ITS ---
PROCEDURE: US OB LIMITED INDICATIONS: SIZE GREATER THAN DATES OUTSIDE/PRIOR DATING DATA: Last menstrual period (LMP): 11/07/19. LMP-based estimated date of delivery (DILLAN): 08/13/20 . First dating scan (date and location): 12/28/19 . Estimated date of delivery (DILLAN) from first dating scan: 08/13/20 . TECHNIQUE: Real-time scanning was performed of the fetus, with image documentation. Endovaginal scanning: Not needed COMPARISON: [facility], OB LIMITED, 05/31/2020, 10:45. [facility], OB LIMITED, 12/09/2017, 13:19. FINDINGS: A single living intrauterine gestation is present. Presentation: Vertex. Placenta: Placental position is anterior , without previa. Amniotic fluid index: 13.8 cm, normal range is 5-24 cm. heart rate: 131 beats per minute. Maternal cervical canal: Not seen due to vertex presentation. Gestational age from initial scan: 36 weeks 4 days The current biometry is internally consistent with a gestational age of 37 weeks 1 day and therefore there has been appropriate interval growth. BPD 9.2 cm, 37 weeks 1 day. Head circumference 32.9 cm, 37 weeks 3 days. Abdominal circumference 33.4 cm, 37 weeks 2 days. Femur length 7.1 cm, 36 weeks 3 days. The estimated current weight is 3112 g, 68th percentile, for current gestational age. IMPRESSION: Appropriate interval growth, no anomaly seen. The delivery date is projected to be centered on 08/13/20. Current estimated weight is at the upper 68th percentile, normal. Amniotic fluid index also is normal at 13.8 cm. Dictated by: Mohan Loco M.D. on 07/20/2020 at 13:25 Approved by: Mohan Loco M.D. on 07/20/2020 at 13:29
== END ==
PROVIDERS: PCP Family Medicine; Referring Provider Family Medicine; Visit Provider Family Medicine
DX: Z36.88 Encounter for antenatal screening for fetal macrosomia (principal); Z3A.36 36 weeks gestation of pregnancy
CPT/HCPCS: 76815

== ENCOUNTER 2020-07-26 11:33 | Outpatient (CLI) | payer OTHER, MEDICAID, SELFPAY | END 2020-07-26 12:06 | disposition home or self-care (01) | LOC: LABOR 11:45 → OB 07-27 08:24 | PROVIDERS: PCP Family Medicine; Referring Provider Family Medicine; Visit Provider Family Medicine | DX: O60.03 Preterm labor without delivery, third trimester (principal); Z3A.37 37 weeks gestation of pregnancy | CPT/HCPCS: 59025; 84112; G0378; G0379 ==

== ENCOUNTER 2020-07-30 22:09 | Observation (INO) | payer OTHER, MEDICAID, SELFPAY | END 2020-07-31 00:23 | disposition home or self-care (01) | LOC: LABOR 22:10 | PROVIDERS: Admitting Provider Student in an Organized Health Care Education/Training Program; PCP Family Medicine; Referring Provider Student in an Organized Health Care Education/Training Program; Visit Provider Student in an Organized Health Care Education/Training Program | DX: Z34.83 Encounter for supervision of other normal pregnancy, third trimester (principal); Z3A.38 38 weeks gestation of pregnancy | CPT/HCPCS: 59025; 59050; G0378; G0379 ==

== ENCOUNTER 2020-08-06 20:06 | Inpatient (IN) | payer OTHER, MEDICAID, SELFPAY ==
[2020-08-06 21:48] VITALS: BP 121/83
[2020-08-06 22:38] LABS: COVID19 - ADMIT (NP swab/PCR) POSITIVE (Negative)
[2020-08-06 22:42] LABS: Add Manual Diff / Slide Review NO; Basophils Absolute Auto 0 /uL (0-100); Basophils Percent Auto 0.6 % (0-2); Eosinophils Absolute Auto 0 /uL (0-450); Eosinophils Percent Auto 0.5 % (2-4); Hematocrit 31.9 % (36-46); Hemoglobin 10.3 g/dL (12.0-16.0); Lymphocytes Absolute Auto 1400 /uL (1100-4500); Lymphocytes Percent Auto 17.1 % (25-40); Mean Corpuscular HGB Conc 32.2 % (30-36); Mean Corpuscular Hemoglobin 24.8 PG (26-34); Mean Corpuscular Volume 76.8 fL (80-100); Monocytes Absolute Auto 1000 /uL (0-900); Monocytes Percent Auto 12.9 % (3-14); Neutrophils Absolute Auto 5600 /uL (1500-7000); Neutrophils Percent Auto 68.9 % (50-75); Platelet Count 204 X10^3/uL (150-400); Red Blood Cell Count 4.15 X10^6/uL (4.0-5.2); Red Cell Distribution Width 15.9 % (11.6-14.8); White Blood Cell Count 8.1 X10^3/uL (4.5-11.0)
[2020-08-06] MEDS: DINOPROSTONE VAG (CERVIDIL) 10 MG VAG (22:50)
[2020-08-07] MEDS: ONDANSETRON 4 MG/2 ML INJ IV ×2 (05:58→12:07)
[2020-08-07] MEDS: PENICILLIN G POTASSIUM 5,000,000 UNIT in DEXTROSE 5% IN WATER 250 ML IV (06:20)
[2020-08-07] MEDS: LACTATED RINGERS 1,000 ML 100 ML IV (08:16)
[2020-08-07] MEDS: FENT 2MCG/ML BUPIV 0.125% EPI 200 MCG/100 ML PLAST..BAG 10 MCG EPIDURAL (08:17)
[2020-08-07] MEDS: PENICILLIN G POTASSIUM 3,000,000 UNIT/50 ML FROZ.PIGGY 100 UNIT IV (10:35)
--- NOTE | 2020-08-07 14:06 | PM.OBPNLAB ---
Date/Time Date Patient Seen: 08/07/20 Time Patient Seen: 08:01 Pain Control Pain control: epidural Pelvic Exam Dilation (cm): 4 Effacement (%): 80 station: -1 Amniotic membrane status: Bulging Contractions Contractions on admission: irregular Monitor mode: External Contraction frequency (min): 2 Contraction duration (min): 1 Contraction pattern: Irregular Contraction phase: Resting Contraction intensity: Strong/Firm Status status: Category l Heart Rate Baseline: 140 Monitor Accelerations: Present Monitor Decelerations: Early Monitor Variability: Moderate Assessment and Plan Assessment: active labor Plan: continuous present management
--- NOTE | 2020-08-07 14:14 | PM.OBPRVD ---
Labor & Delivery Delivery date: 08/07/20 Cervical ripening method: per Cervidil protocol Induction method: none Delivery monitor: external FHT and external uterine Route of delivery: forceps Indication for instrumentation: nonreassuring FHR tracing L&D Laceration Description: Perineal - 1st Degree Delivery repair: chromic Estimated blood loss (mL): 300 Anesthesia Type: Epidural Complications: none Narrative: A 29-year-old at 39 weeks gestation who is brought in for cervical ripening due to prolonged prodromal labor. She has had intermittent uterine contractions really since about 18 weeks gestation where she was diagnosed with the UTI and was treated for the same. She received 1 dose of Cervidil. She was GBS positive. She is found to be COVID positive on her screening issues admitted to the hospital without symptoms so appropriate ppm precautions were carried out throughout her stay Stage I: 6 hours Patient received 1 Cervidil at approximately 9:00 p.m.. She started having more regular uterine contractions in at 6:30 a.m. had made significant cervical change and that she was 90% effaced -1 station and 1-2 cm dilated. She was requesting epidural at that time was felt to be in active labor. Epidural was completed at 7:30 a.m. and she had excellent control. Patient in retrospect had spontaneous rupture membranes of bloody fluid at 11:19 a.m.. Patient was GBS positive and received 2 doses of IV antibiotics. The last dose going in at 10:00 a.m.. Patient had rupture of membranes for 2 hours prior to delivery. External tocometer was used throughout this stage there was a lot a coupling and then she got into more regular pattern but still every 2-4 minutes. External heart monitor showed baseline in the 130s to 140s with accelerations and moderate variability throughout this stage. There were occasional variable early decelerations and occasional late place decelerations but these had a normal morphology and good variability within them. Deceleration 4-1 10-120. They were very brief. I was requested to come to Labor and delivery at approximately 12:30 p.m. at the time the patient was noted to be complete. At the time that I checked her baby was at 0 station with no obvious bulging membranes. Baby was felt to be direct occiput posterior. Stage II lasted approximately 30 minutes. Patient was noted to be complete at approximately 12:30 p.m.. We prepared for pushing and patient did push 2 times and there was a significant deceleration into the 60s for approximately 1 minutes. We then stopped pushing and placed oxygen as well patient patient on her right lateral side and baby recovered quickly. Heart rate then increased to 120s to 130s with again good variability. There was no head descent with pushing. There was large amounts of very bloody fluid hard to tell if this was amniotic fluid or just simply blood. Dr. Beebe was consulted due to intolerance of labor concern for baby being os but posterior and possible silent placental abruption. Patient was consulted and discussed and forceps were applied and with 1 push significant movement of the head down to +2 to +3 and then a 2nd pole with pushing and baby was . Forceps were removed and the head was delivered in direct occiput posterior position. The left anterior shoulder was then delivered with some difficulty and then I discovered a nuchal cord which was reduced as the right posterior shoulder was coming out and baby was placed on mom's chest. There was terminal meconium and baby was vigorous shortly after being placed on mom's chest Stage III lasted 7 minutes Normal spontaneous vaginal delivery of an intact mildly calcified placenta with lateral insertion and three-vessel cord 8 at 1 minute and 9 at 5 minutes Baby weight pending age There was a very superficial non bleeding vaginal sidewall tear on the left and a smaller 1 anterior on the right and this 1 was repaired with 3-0 chromic. Patient had superficial perineal lacerations that were repaired with 3-0 chromic. IV Pitocin was given at the time of delivery of the placenta. Estimated blood loss 300 cc Catheter was removed shortly prior to pushing At the time of dictation both mom and baby are in stable condition Plan for aftercare: Routine care
[2020-08-07 14:19] LABS: COVID19 - ADMIT (NP swab/PCR) POSITIVE (Negative)
[2020-08-07] MEDS: ACETAMINOPHEN 325 MG TABLET 650 MG PO ×2 (15:23→20:59)
[2020-08-07] MEDS: KETOROLAC 30 MG/ML VIAL IV ×2 (15:23→21:00)
[2020-08-07] MEDS: DERMOPLAST SPRAY 20% 60 ML 1 SPRAY TOP (19:59)
--- NOTE | 2020-08-07 20:34 | PM.CN ---
History of Present Illness Consult details Date Patient Seen: 08/07/20 Time Patient Seen: 13:30 Chief complaint: eval of labor Reason for consult: Operative delivery Narrative: Patient is a 29-year-old 5 para 4 who presented for induction of labor at 39 weeks gestation. Consultation was requested by Dr. Tiny Hummel for operative delivery. Patient was completely dilated. With each push had deep variable decelerations. Meds Home Medications and Allergies Home Medications Medication Instructions Recorded Confirmed Type No Known Home Medications 12/17/17 08/07/20 History Allergies Allergy/AdvReac Type Severity Reaction Status Date / Time adhesive [ADHESIVE] Allergy Mild TAPE Verified 03/14/20 16:00 Exam Vital Signs (past 8 hours): Generally: Patient comfortable with epidural Vagina: Complete and + 1-2 station. Direct occiput posterior presentation. Laufe forceps were applied without difficulty. With 1 contraction, the vertex was brought to the perineum. Forceps were removed. The remainder of the delivery was done by Dr. Hummel. Objective Labs Result Diagrams: 08/06/20 22:30 Labs: Laboratory Results - last 24 hr 08/06/20 08/06/20 08/06/20 21:10 22:30 22:30 WBC 8.1 RBC 4.15 Hgb 10.3 L Hct 31.9 L MCV 76.8 L MCH 24.8 L MCHC 32.2 RDW 15.9 H Plt Count 204 Neut % (Auto) 68.9 Lymph % (Auto) 17.1 L [place] % (Auto) 12.9 Eos % (Auto) 0.5 L Baso % (Auto) 0.6 Neut # (Auto) 5600 Lymph # (Auto) 1400 [place] # (Auto) 1000 H Eos # (Auto) 0 Baso # (Auto) 0 SARS-CoV-2 (PCR) Positive H Blood Type O Positive Antibody Screen Negative 08/07/20 13:20 WBC RBC Hgb Hct MCV MCH MCHC RDW Plt Count Neut % (Auto) Lymph % (Auto) [place] % (Auto) Eos % (Auto) Baso % (Auto) Neut # (Auto) Lymph # (Auto) [place] # (Auto) Eos # (Auto) Baso # (Auto) SARS-CoV-2 (PCR) Positive H Blood Type Antibody Screen Assessment & Plan Assessment & Plan narrative: Assessment: 29-year-old 5 para 4 at 39 weeks gestation Complete dilation and +1 to 2 station Deep variable decelerations with pushing Plan: Forceps application and delivery of the vertex as above Time Spent With Patient Time with patient: less than 15 minutes
[2020-08-07] MEDS: DOCUSATE 100 MG CAPSULE PO (20:59)
[2020-08-08] MEDS: KETOROLAC 30 MG/ML VIAL IV (03:42)
[2020-08-08] MEDS: ACETAMINOPHEN 325 MG TABLET 650 MG PO ×2 (03:43→10:54)
[2020-08-08 04:59] LABS: Add Manual Diff / Slide Review NO; Basophils Absolute Auto 0 /uL (0-100); Basophils Percent Auto 0.4 % (0-2); Eosinophils Absolute Auto 0 /uL (0-450); Eosinophils Percent Auto 0.2 % (2-4); Hematocrit 28.4 % (36-46); Hemoglobin 9.1 g/dL (12.0-16.0); Lymphocytes Absolute Auto 2100 /uL (1100-4500); Lymphocytes Percent Auto 22.8 % (25-40); Mean Corpuscular Hemoglobin 24.6 PG (26-34); Mean Corpuscular Volume 77.1 fL (80-100); Monocytes Absolute Auto 900 /uL (0-900); Monocytes Percent Auto 9.5 % (3-14); Neutrophils Absolute Auto 6100 /uL (1500-7000); Neutrophils Percent Auto 67.1 % (50-75); Platelet Count 171 X10^3/uL (150-400); Red Blood Cell Count 3.68 X10^6/uL (4.0-5.2)
--- NOTE | 2020-08-08 08:51 | P.DS_ITS ---
Discharge Providers Provider Date of admission: 08/06/20 20:06 Discharge Date: 08/08/20 Primary care physician: Tosha Hummel MD Consults: 08/08/20 14:03 Consult to Insurance Licensing Supervisor Routine Comment: Discharge provider: Tosha Hummel MD Summary Hospital Course Date Patient Seen: 08/08/20 Time Patient Seen: 08:52 Hospital Course: Patient was admitted to the hospital given Cervidil for cervical ripening. This started labor and patient received epidural early in the morning and had rapid progression. Patient had forceps assisted delivery. Patient with a history of urinary retention . Maharaj catheter was left in overnight. Due to retained urine. Pain was well controlled with Toradol Breast-feeding was going well and patient was discharged home on day 1. Peripartum Data Delivery Method: Assisted Delivery Laceration Description: Perineal - 1st Degree Procedures: Epidural Forceps assisted delivery due to distress due to occiput posterior and nuchal cord complications: none Status at Discharge Cognitive/behavioral status at discharge: oriented Functional status at discharge: independent ambulation Overall status at discharge: patient is progressing back to baseline Time Spent with Patient Time attestation: Total time spent providing and/or coordinating discharge services: 35 minutes Specific discharge activities: Routine Objective Labs Result Diagrams: 08/08/20 04:46 Labs: Laboratory Results - last 24 hr 08/07/20 08/08/20 13:20 04:46 WBC 9.0 RBC 3.68 L Hgb 9.1 L Hct 28.4 L MCV 77.1 L MCH 24.6 L MCHC 32.0 RDW 16.0 H Plt Count 171 Neut % (Auto) 67.1 Lymph % (Auto) 22.8 L Long % (Auto) 9.5 Eos % (Auto) 0.2 L Baso % (Auto) 0.4 Neut # (Auto) 6100 Lymph # (Auto) 2100 Long # (Auto) 900 Eos # (Auto) 0 Baso # (Auto) 0 SARS-CoV-2 (PCR) Positive H Exam Vital Signs (past 8 hours): Afebrile vital signs are stable Chest clear to auscultation Cor: Regular rate and rhythm without murmur Abdomen benign. Uterus is firm and below umbilicus and nontender Extremities no edema DTRs intact Discharge Plan Discharge Plan Patient Disposition: Home Discharge orders & Medications Prescriptions: No Action No Known Home Medications RF: 0 Follow up/Referrals: Tosha Hummel MD [Primary Care Provider] - Discharge Data Primary Care Provider: Tosha Hummel
[2020-08-08] MEDS: IBUPROFEN 600 MG TABLET PO (10:53)
[2020-08-08] MEDS: LANOLIN OINT 7 GM 1 APPLIC TOP (10:54)
[2020-08-08] MEDS: PRENATAL VIT,CALC/IRON/FOLIC 1 TABLET 1 TAB PO (10:55)
[2020-08-08] MEDS: DOCUSATE 100 MG CAPSULE PO (10:55)
[2020-08-08 12:26] VITALS: BP 110/64; PULSE 72; RESP 16; TEMP 35.6
== END 2020-08-08 13:45 | disposition home or self-care (01) | DRG 560 ==
PROVIDERS: Admitting Provider Family Medicine; PCP Family Medicine; Referring Provider Family Medicine; Visit Provider Family Medicine
DX: O63.0 Prolonged first stage (of labor) (principal); U07.1 COVID-19; O45.93 Premature separation of placenta, unspecified, third trimester; O64.0XX0 Obstructed labor due to incomplete rotation of fetal head, not applicable or unspecified; Z3A.39 39 weeks gestation of pregnancy; Z37.0 Single live birth; O70.0 First degree perineal laceration during delivery; O98.52 Other viral diseases complicating childbirth; O99.824 Streptococcus B carrier state complicating childbirth; O76 Abnormality in fetal heart rate and rhythm complicating labor and delivery; O69.81X0 Labor and delivery complicated by cord around neck, without compression, not applicable or unspecified; O77.0 Labor and delivery complicated by meconium in amniotic fluid; O43.893 Other placental disorders, third trimester
CPT/HCPCS: 01967; 36415; 59050; 85025; 86850; 86900; 86901; 87635; C9803; G0379; J1885; J2405; J2540